=== PATIENT | male | born 1960 ===

== ENCOUNTER 2017-04-30 12:17 | Emergency (ER) | payer MEDICAID ==
[2017-04-30 12:21] VITALS: BMI 28.5
[2017-04-30 12:23] VITALS: RESP 18
--- NOTE | 2017-04-30 13:02 | C.PDOC ---
Chief Complaint (Nursing): Abdominal Pain Past Medical History Vital Signs: Last Vital Signs Temp 98.4 F 04/30/17 12:22 Pulse 65 04/30/17 12:22 Resp 18 04/30/17 12:22 BP 149/82 04/30/17 12:22 Pulse Ox 98 04/30/17 12:22 - Medical History PMH: Anxiety, Arthritis (osteoarthritis), Asthma, Back Problems, Benign Prostatic Hyperplasia, COPD, Diverticulitis, Hiatal Hernia, HTN, Hypercholesterolemia, Chronic Pain (Chronic back pain due to spinal stenosis) Denies: CHF, HIV, Chronic Kidney Disease Surgical History: - [facility] Procedures ANESTH INJEC PERIPH NERV (04/09/14) ANESTH INJECT SYMP NERVE (06/29/14) ANESTH INJECT-SPIN CANAL (02/27/15) COLONOSCOPY (01/21/15) INJECT STEROID (02/27/15) INJECT/INFUSE NEC (11/09/14) LUMBOSAC SPINE X-RAY NEC (02/27/15) NEBULIZER THERAPY (09/29/14) PERIPH NERVE DESTRUCTION (09/12/14) PERIPH NERVE INJECT NEC (04/09/14) PHYSICAL THERAPY NEC (04/11/15) SPINAL CANAL INJECT NEC (02/27/15) SYMPATH NERVE INJECT NEC (06/29/14) Family History: States: [place], CAD, Diabetes, Hypertension - Social History Hx Alcohol Use: No Hx Substance Use: No ED Course And Treatment O2 Sat by Pulse Oximetry: 98 Disposition - Disposition Forms: [facility] (Bulgarian)
[2017-04-30] MEDS ORDERED: Sodium Chloride 0.9% 1,000 ML IV ONE (13:11)
--- NOTE | 2017-04-30 13:23 | C.PDOC ---
History Of Present Illness 56 y/o male, with PMHx of pancreatitis, presents to the ED for evaluation of watery diarrhea for the last 2 days. Notes taking Protonix, and Pepcid without any improvement. Denies alcohol use in the last year. Otherwise, denies any nausea, vomiting, back pain, urinary symptoms, fever, or chills. Time Seen by Provider: 04/30/17 13:04 Chief Complaint (Nursing): Abdominal Pain History Per: Patient History/Exam Limitations: no limitations Onset/Duration Of Symptoms: Days (2) Current Symptoms Are (Timing): Still Present Severity: None Pain Scale Rating Of: 0 Radiation Of Pain To:: None Associated Symptoms: Diarrhea. denies: Fever, Chills, Nausea, Vomiting, Loss Of Appetite, Back Pain, Chest Pain, Constipation, Urinary Symptoms Exacerbating Factors: None Alleviating Factors: None Last Bowel Movement: Today Recent travel outside of the [place]: No Additional History Per: Patient Past Medical History Reviewed: Historical Data, Nursing Documentation, Vital Signs Vital Signs: Last Vital Signs Temp 98.4 F 04/30/17 12:22 Pulse 65 04/30/17 12:22 Resp 18 04/30/17 12:22 BP 149/82 04/30/17 12:22 Pulse Ox 98 04/30/17 13:30 - Medical History PMH: Anxiety, Arthritis (osteoarthritis), Asthma, Back Problems, Benign Prostatic Hyperplasia, COPD, Diverticulitis, Hiatal Hernia, HTN, Hypercholesterolemia, Chronic Pain (Chronic back pain due to spinal stenosis) Denies: CHF, HIV, Chronic Kidney Disease Surgical History: - [facility] Procedures ANESTH INJEC PERIPH NERV (04/09/14) ANESTH INJECT SYMP NERVE (06/29/14) ANESTH INJECT-SPIN CANAL (02/27/15) COLONOSCOPY (01/21/15) INJECT STEROID (02/27/15) INJECT/INFUSE NEC (11/09/14) LUMBOSAC SPINE X-RAY NEC (02/27/15) NEBULIZER THERAPY (09/29/14) PERIPH NERVE DESTRUCTION (09/12/14) PERIPH NERVE INJECT NEC (04/09/14) PHYSICAL THERAPY NEC (04/11/15) SPINAL CANAL INJECT NEC (02/27/15) SYMPATH NERVE INJECT NEC (06/29/14) Family History: States: [place], CAD, Diabetes, Hypertension - Social History Hx Alcohol Use: No Hx Substance Use: No - Immunization History Hx Tetanus Toxoid Vaccination: No Hx Influenza Vaccination: No Hx Pneumococcal Vaccination: No Review Of Systems Except As Marked, All Systems Reviewed And Found Negative. Constitutional: Negative for: Fever, Chills Gastrointestinal: Positive for: Diarrhea. Negative for: Nausea, Vomiting, Abdominal Pain, Constipation, Melena, Hematochezia, Rectal Pain Genitourinary: Negative for: Dysuria, Frequency, Hematuria Musculoskeletal: Negative for: Back Pain Skin: Negative for: Rash, Bruising Physical Exam - Physical Exam Appears: Non-toxic, No Acute Distress Skin: Normal Color, Warm, Dry, No Rash Head: Atraumatic, Normacephalic, Other (parotid enlargement) Eye(s): bilateral: Normal Inspection Oral Mucosa: Moist Neck: Normal ROM, Supple Cardiovascular: Rhythm Regular, No Murmur Respiratory: Normal Breath Sounds, No Rales, No Rhonchi, No Wheezing Gastrointestinal/Abdominal: Normal Exam, Soft, No Tenderness, No Guarding, No Rebound Back: Normal Inspection Extremity: Bilateral: Atraumatic, Normal ROM Neurological/Psych: Oriented x3, Normal Speech ED Course And Treatment - Laboratory Results Result Diagrams: 04/30/17 13:32 04/30/17 13:32 Lab Interpretation: Normal (lipase neg.) O2 Sat by Pulse Oximetry: 98 (RA) Pulse Ox Interpretation: Normal - Radiology CXR: Interpreted by Me CXR Interpretation: Yes: No Acute Disease - Other Rad abd x 2 X-Ray: Interpreted by Me (scant stool, no obst/FA) Reevaluation Time: 15:16 Reassessment Condition: Improved Medical Decision Making Medical Decision Making: Blood work, urinalysis, obstructive series x-ray ordered and reviewed. Patient was given Toradol, and IV fluids. loose stools, no colitis by exam/labs Disposition Doctor Will See Patient In The: Office Counseled Patient/Family Regarding: Studies Performed, Diagnosis - Disposition Disposition: HOME/ ROUTINE Disposition Time: 15:16 Condition: GOOD Forms: [facility] (Tajik) - Clinical Impression Clinical Impression: Diarrhea - Scribe Statement The provider has reviewed the documentation as recorded by the Ingrisibe Jose Pedraza All medical record entries made by the Ingrisibe were at my direction and personally dictated by me. I have reviewed the chart and agree that the record accurately reflects my personal performance of the history, physical exam, medical decision making, and the department course for this patient. I have also personally directed, reviewed, and agree with the discharge instructions and disposition.
[2017-04-30] MEDS ORDERED: Sodium Chloride 0.9% 1,000 ML ONE (13:32)
[2017-04-30 13:37] LABS: BASO % 0.8 % (0.0-2.0); EOS # 0.1 K/uL (0.0-0.7); HEMOGLOBIN 15.9 g/dL (12.0-18.0); LYMPH # 1.1 K/uL (1.0-4.3); LYMPH % 19.2 % (20.0-40.0); MEAN CORPUSCULAR HEMOGLOBIN 27.4 pg (27.0-31.0); MEAN CORPUSCULAR HGB CONC 33.5 g/dL (33.0-37.0); MONO # 0.5 K/uL (0.0-0.8); MONO % 8.7 % (0.0-10.0); NEUT # 4.1 K/uL (1.8-7.0); NEUT % 69.3 % (50.0-75.0); NRBC % 0.1 % (0.0-2.0); RBC 5.78 Mil/uL (4.40-5.90); RED CELL DISTRIBUTION WIDTH 13.3 % (11.5-14.5); WHITE BLOOD COUNT 5.8 K/uL (4.8-10.8)
[2017-04-30 13:39] LABS: URINE BILIRUBIN NEGATIVE (NEGATIVE); URINE BLOOD NEGATIVE (NEGATIVE); URINE CLARITY Clear (Clear); URINE COLOR Yellow (YELLOW); URINE GLUCOSE (UA) NORMAL (Normal); URINE LEUKOCYTE ESTERASE NEG Leu/uL (Negative); URINE NITRATE NEGATIVE (NEGATIVE); URINE PROTEIN NEGATIVE (NEGATIVE); URINE UROBILINOGEN NORMAL mg/dL (0.2-1.0)
[2017-04-30 13:44] LABS: ALBUMIN 4.5 g/dL (3.5-5.0)
--- NOTE | 2017-04-30 13:45 | RAD ---
PROCEDURE: Radiographs of the chest and abdomen (obstructive series) HISTORY: abd pain COMPARISON: No prior. TECHNIQUE: AP radiograph of the chest, with upright and supine radiographs of the abdomen. FINDINGS: CHEST: Lungs: Clear. Cardiovascular: Normal size heart. No pulmonary vascular congestion. Pleura: No pleural fluid. No pneumothorax. Other findings: None. ABDOMEN AND PELVIS: Bowel: Unremarkable bowel gas pattern. No evidence of mechanical obstruction. Free air: None. Bones: Unremarkable. Other findings: None. IMPRESSION: Unremarkable radiographs of chest and abdomen. No evidence of mechanical bowel obstruction.
[2017-04-30 13:46] LABS: GFR AFRICAN-AMERICAN > 60; GFR NON-AFRICAN AMERICAN > 60
[2017-04-30 13:47] LABS: ALB/GLOB RATIO 1.7 (1.0-2.1); ALT/SGPT 46 U/L (21-72); AST/SGOT 29 U/L (17-59); BLOOD UREA NITROGEN 13 mg/dL (9-20); CALCIUM 8.8 mg/dl (8.6-10.4); LIPASE 118 U/L (23-300)
[2017-04-30 13:53] LABS: BARBITURATES, UR NEGATIVE (NEGATIVE)
[2017-04-30 13:54] LABS: BENZODIAZEPINES, UR NEGATIVE (NEGATIVE)
[2017-04-30 13:57] LABS: PHENCYCLIDINE, UR NEGATIVE (NEGATIVE)
[2017-04-30 14:35] LABS: OPIATES, UR POSITIVE (NEGATIVE)
[2017-04-30 15:24] VITALS: BP 133/91; PULSE 64; TEMP 97.8; O2SAT 96
== END 2017-04-30 15:24 | disposition home or self-care (01) ==
LOC: C.ER 12:17
DX: R19.7 Diarrhea, unspecified (principal)
CPT/HCPCS: 74022; 80053; 80320; 80324; 80345; 80346; 80349; 80353; 80358; 80361; 81001; 83690; 83992; 85025; 96361; 96374; 99284; J1885; J7040